=== PATIENT | female | born 1960 | race Caucasian/White ===

== ENCOUNTER → 2016-04-25 | Outpatient (CLI) | payer MEDICARE, OTHER ==
[~2016-04-25] MED LIST: ANTIVERT PO; BACTRIM DS TABL1 TAB PO; CALTRATE 600+D PO; CALTRATE PLUS T1 TAB PO; CALTRATE PO; CARVEDILOL3.125 MG PO; CIPRO PO; DETROL LA; DILANTIN; DILANTIN PO; DILANTIN30 MG PO; HCTZ; HYDROCHLOROTHIA25 MG PO; KCL PO; LEVAQUIN PO; LORTAB 5/500 TA1 TA1 PO; LORTAB 5/500 TA1 TA2 PO; MECLIZINE HCL25 M1 PO; METAMUCIL0.52 G; MICRO-K PO; PHENOBARB; PHENOBARB PO; PHENOBARBITAL PO; PHENOBARBITAL16.2 MG PO; POTASSIUM PO; PYRIDIUM PO; TOPAMAX; TOPAMAX PO; TOPAMAX200 MG PO; TUMS; VESICARE PO; VICODIN PO; ZOFRAN ODT4 MG PO; ZYPREXA PO; ZYPREXA10 MG PO; [UNRECOGNIZED DRUG - OTHER] PO; [UNRECOGNIZED DRUG - OTHER] PO
== END | disposition home or self-care (01) ==
LOC: CSSDAY 13:09
PROC: 0T2BX0Z Change Drainage Device in Bladder, External Approach (ICD-10-PCS; principal; 2016-04-25)
DX: Z46.6 Encounter for fitting and adjustment of urinary device (principal); R33.9 Retention of urine, unspecified
CPT/HCPCS: G0463

== ENCOUNTER → 2016-05-16 | Outpatient (CLI) | payer MEDICARE, OTHER | END | disposition home or self-care (01) | LOC: CSSDAY 10:27 | PROC: 0T2BX0Z Change Drainage Device in Bladder, External Approach (ICD-10-PCS; principal; 2016-05-16) | DX: Z46.6 Encounter for fitting and adjustment of urinary device (principal); R33.9 Retention of urine, unspecified | CPT/HCPCS: G0463 ==

== ENCOUNTER → 2016-06-06 | Outpatient (CLI) | payer MEDICARE, OTHER | END | disposition home or self-care (01) | LOC: CSSDAY 09:44 | PROC: 0T2BX0Z Change Drainage Device in Bladder, External Approach (ICD-10-PCS; principal; 2016-06-06) | DX: Z46.6 Encounter for fitting and adjustment of urinary device (principal) | CPT/HCPCS: G0463 ==

== ENCOUNTER → 2016-06-22 | Outpatient (CLI) | payer MEDICARE, OTHER ==
--- NOTE | ~2016-06-22 | MY11 ---
[facility] A Service of [facility] RADIOLOGY TEXT RESULTS PATIENT: LESLY SWEENEY LOCATION: [facility] : 60 UNIT #: [id number] AGE: [address]: Elli Winter MD SEX: F ORDER DR: [id number] [place] [id number] [facility]. [place], [place] [address] [id number] O MR#: [id number] Acc #: [id number] NAME: LESLY SWEENEY : 1960 SEX: F STUDY DATE/TIME: 06/22/2016 8:18 UNIT: [facility] ROOM: STUDY DESCRIPTION: MY Mammogram Screening Dig Mark Attending Physician: Elli Winter M.D. Ordering Physician: Elli Winter M.D. Primary Care Physician: Elli Winter M.D. MEDICAL IMAGING REPORT This report is preliminary unless electronic signature is present EXAM Bilateral digital screening mammogram with CAD INDICATION Breast cancer screening. 56-year-old asymptomatic female. No personal or family history of breast cancer. COMPARISON June 11, 2015, April 21, 2014, February 17, 2013, December 02, 2010, July 27, 2009, January 28, 2008, January 18, 2006, December 27, 2004. FINDINGS There are scattered fibroglandular tissues. No suspicious findings are present. IMPRESSION No mammographic evidence of malignancy. Annual screening mammography and clinical breast exam are recommended. A result letter will be sent to the patient. Patients over the age of 40 are entered into a reminder system with target due date for the next mammogram. BIRADS: 1 Negative Dictated by... Jayce Fernandez M.D. THIS IS AN ELECTRONICALLY VERIFIED REPORT Jayce Fernandez M.D. at 06/26/2016 5:48 PM [facility] A Service of [facility] RADIOLOGY TEXT RESULTS PATIENT: LESLY SWEENEY LOCATION: [facility] : 60 UNIT #: [id number] AGE: [address]: Elli Winter MD SEX: F ORDER DR: SABINE/ankita TD: 06/22/2016 10:52 JOB #: [id number] MEDICAL IMAGING REPORT Page 1 of 1 COPY
== END | disposition home or self-care (01) ==
LOC: CWCC 08:09
DX: Z12.31 Encounter for screening mammogram for malignant neoplasm of breast (principal)
CPT/HCPCS: G0202

== ENCOUNTER → 2016-06-26 | Outpatient (CLI) | payer MEDICARE, OTHER | END | disposition home or self-care (01) | LOC: CSSDAY 09:41 | PROC: 0T2BX0Z Change Drainage Device in Bladder, External Approach (ICD-10-PCS; principal; 2016-06-26) | DX: Z46.6 Encounter for fitting and adjustment of urinary device (principal); R33.9 Retention of urine, unspecified | CPT/HCPCS: G0463 ==

== ENCOUNTER → 2016-07-18 | Outpatient (CLI) | payer MEDICARE, OTHER | END | disposition home or self-care (01) | LOC: CSSDAY 09:40 | DX: Z46.6 Encounter for fitting and adjustment of urinary device (principal); R33.9 Retention of urine, unspecified | CPT/HCPCS: G0463 ==

== ENCOUNTER → 2016-08-08 | Outpatient (CLI) | payer MEDICARE, OTHER | END | disposition home or self-care (01) | LOC: CSSDAY 10:00 | PROC: 0T2BX0Z Change Drainage Device in Bladder, External Approach (ICD-10-PCS; principal; 2016-08-08) | DX: Z46.6 Encounter for fitting and adjustment of urinary device (principal); R33.9 Retention of urine, unspecified | CPT/HCPCS: G0463 ==

== ENCOUNTER → 2016-08-10 | Outpatient (CLI) | payer MEDICARE, OTHER ==
--- NOTE | ~2016-08-10 | CR7 ---
[facility] A Service of [facility] RADIOLOGY TEXT RESULTS PATIENT: LESLY SWEENEY LOCATION: [facility] : 60 UNIT #: [id number] AGE: [address]: Delonte Harvey MD SEX: F ORDER DR: [id number] [facility] [address] [facility]. [place], [place] [address] [id number] O MR#: [id number] Acc #: [id number] NAME: LESLY SWEENEY : 1960 SEX: F STUDY DATE/TIME: 08/10/2016 9:50 UNIT: [facility] ROOM: STUDY DESCRIPTION: CR Abdomen Single AP View Attending Physician: Delnote Harvey M.D. Referring Physician: Delonte Harvey M.D. Ordering Physician: Delonte Harvey M.D. Primary Care Physician: Elli Winter M.D. MEDICAL IMAGING REPORT This report is preliminary unless electronic signature is present EXAM AP abdomen DATE 08/10/2016 HISTORY Kidney stones. Followup. Bilateral abdominal pain for a couple of weeks, per patient. COMPARISON AP abdomen 10/04/2015 FINDINGS Study is somewhat attenuated secondary to patient's body habitus. There are least 2 stones projecting over the right lower renal pole measuring approximately 5 and 8 mm respectively. There are at least 2 stones at the left lower renal pole measuring 6 and 4 mm, respectively. These are not thought to be significantly changed. No definite ureteral calculi are identified. Nonspecific and nonobstructive bowel gas pattern. Small marginal osteophytes in the lumbar spine. IMPRESSION 1. There are least 2 stones seen in the vicinity of each lower renal pole, which are not thought to be significantly changed from 10/04/2015, the largest of these at the right lower renal pole measuring 8 mm. 2. No definite ureteral calculus. Dictated by... Trista Jewell M.D. [facility] A Service of [facility] RADIOLOGY TEXT RESULTS PATIENT: LESLY SWEENEY LOCATION: [facility] : 60 UNIT #: [id number] AGE: [address]: Delonte Harvey MD SEX: F ORDER DR: THIS IS AN ELECTRONICALLY VERIFIED REPORT Trista Jewell M.D. at 08/11/2016 8:32 AM [facility]/to TD: 08/10/2016 14:35 JOB #: [id number] MEDICAL IMAGING REPORT Page 1 of 1 COPY
== END | disposition home or self-care (01) ==
LOC: CRAD 09:35
DX: N20.0 Calculus of kidney (principal)
CPT/HCPCS: 74000

== ENCOUNTER → 2016-08-29 | Outpatient (CLI) | payer MEDICARE, OTHER | END | disposition home or self-care (01) | LOC: CSSDAY 11:00 | DX: R33.9 Retention of urine, unspecified (principal) | CPT/HCPCS: G0463 ==

== ENCOUNTER → 2016-09-13 | Outpatient (CLI) | payer MEDICARE, OTHER ==
[2016-09-13 13:50] LABS: BUN/CREATININE RATIO 12.22; CALCIUM SERUM 9.6 mg/dL (8.4-10.2); CREATININE SERUM 0.9 mg/dL (0.6-1.4); GLOM FILT RATE Estimated 71.5 mL/min (>60); POTASSIUM 3.5 mmol/L (3.5-5.1)
== END | disposition home or self-care (01) ==
LOC: CAMB 11:43
PROVIDERS: Surgery
DX: Z01.812 Encounter for preprocedural laboratory examination (principal)
CPT/HCPCS: 36415; 80048

== ENCOUNTER → 2016-09-15 | Day surgery (SDC) | payer MEDICARE, OTHER ==
--- NOTE | ~2016-09-15 | OR ---
Unit #: [id number] #: [id number] Patient: LESLY SWEENEY [id number] [address] [place], [place] [address] [id number] O MR#: [id number] NAME: LESLY SWEENEY ROOM: Date of Procedure: 09/15/2016 Admission Date: 09/15/2016 Surgeon: Petar Nguyen Jr., M.D. : 1960 Attending Physician: Petar Nguyen Jr., M.D. Referring Physician: Petar Nguyen Jr., M.D. Primary Care Physician: Elli Winter M.D. OPERATIVE REPORT INDICATIONS FOR PROCEDURE The patient is a 56-year-old obese white female, recently presented to the office the other day complaining of a chronic draining infected cyst of the right buttock area. This has been there for some time. She is brought in this time for excision of this under MAC anesthesia and local. The patient understands the procedure including the risks, including that of infection of the wound with the recurrence of her cyst and/or chronic pain and consents. PREOPERATIVE DIAGNOSIS Chronic infected cyst of the right buttock. POSTOPERATIVE DIAGNOSIS Chronic infected cyst of the right buttock noting approximately an 8 cm cyst. ANESTHESIA MAC anesthesia with local anesthesia in addition with 0.5% Marcaine with epinephrine. PROCEDURES PERFORMED Excision of large cyst of the right buttock. DESCRIPTION OF PROCEDURE The patient was positioned in left lateral decubitus position after being prepped and draped in routine fashion was given MAC anesthesia and then locally anesthetized with 0.5% Marcaine with epinephrine. An elliptical incision was made around the cyst with the incision length total of approximately 5 inches. This was carried down through subcutaneous tissue with a #10 blade scalpel, down to the deeper subcutaneous tissue with being completely removed from the surrounding tissue. After it was removed, it was sent to pathology. Hemostasis was achieved with Bovie cautery. The deeper tissue approximated with interrupted 2-0 Vicryl sutures. Subcutaneous approximated with interrupted 3-0 Vicryl sutures and the skin edges approximated with interrupted 2-0 nylon mattress stitches as well as stainless-steel skin clips. Sterile dressing was applied externally. Estimated blood loss less than 50 mL. The patient received less than 1000 mL crystalloid solution during the procedure. Sponges and instrument counts were correct x3. No drains used. No complications. The patient was taken to the recovery room with stable vital signs in satisfactory condition. Unit #: [id number] #: [id number] Patient: LESLY SWEENEY Dictated by... Petar Nguyen Jr., M.D. JMB/huy TD: 09/15/2016 11:00 JOB #: [id number] CC: Elli Winter M.D. OPERATIVE REPORT Page 1 of 1 X Petar Nguyen MD X PROCEDURE OPERATIVE NOTE
== END | disposition home or self-care (01) ==
LOC: CSUR 07:41
DX: L72.0 Epidermal cyst (principal); L02.31 Cutaneous abscess of buttock; I48.91 Unspecified atrial fibrillation; I10 Essential (primary) hypertension; E78.5 Hyperlipidemia, unspecified; G89.29 Other chronic pain; G40.909 Epilepsy, unspecified, not intractable, without status epilepticus; E66.01 Morbid (severe) obesity due to excess calories; F41.9 Anxiety disorder, unspecified; F32.9 Major depressive disorder, single episode, unspecified; Z68.42 Body mass index [BMI] 45.0-49.9, adult; Z88.0 Allergy status to penicillin; Z88.6 Allergy status to analgesic agent; Z88.1 Allergy status to other antibiotic agents; Z88.2 Allergy status to sulfonamides; Z79.899 Other long term (current) drug therapy; Z98.890 Other specified postprocedural states
CPT/HCPCS: 87070; 87075; 87205; 88304; J2250; J3010; J3370

== ENCOUNTER → 2016-09-19 | Outpatient (CLI) | payer MEDICARE, OTHER ==
--- NOTE | ~2016-09-19 | MR18 ---
[facility] A Service of [facility] & [facility] RADIOLOGY TEXT RESULTS PATIENT: LESLY SWEENEY LOCATION: [facility] : 60 UNIT #: [id number] AGE: [address]: Elli Winter MD SEX: F ORDER DR: [id number] [place] [id number] O MR#: [id number] Acc #: [id number] NAME: LESLY SWEENEY : 1960 SEX: F STUDY DATE/TIME: 09/19/2016 14:13 UNIT: [facility] ROOM: STUDY DESCRIPTION: MR Brain Wo Contrast Attending Physician: Elli Winter M.D. Referring Physician: Elli Winter M.D. Ordering Physician: Elli Winter M.D. Primary Care Physician: Elli Winter M.D. MRI CENTER REPORT This report is preliminary unless electronic signature is present. EXAM MRI brain without contrast HISTORY Dizziness. Seizure disorder, no known injury. No surgery. Patient has increasing dizziness and unsteadiness on feet, with episodes daily for a month. No history of cancer. MRI of the brain was performed without contrast using routine 1.5T imaging technique. There is a head CT comparison from 11/19/2011. There is no abnormally restricted diffusion. No evidence for a recent ischemic insult on the diffusion series. There is disproportionate volume loss in the posterior fossa including cerebellar hemispheres and vermis. The dorinda and middle cerebellar peduncles have e normal configuration. The main differential considerations are sequelae of longstanding alcohol use or seizure disorder medication use. Less likely considerations include familial ataxia syndromes or perineoplastic syndromes. Please correlate further clinically. There is no MRI evidence for intracranial hemorrhage. There is no extraaxial fluid collection. Otherwise, the ventricles are normal in size and configuration. Study is not performed as a seizure protocol. Last seizure in 2000 per patient. Small amount of fluid or inflammatory change in the mastoid tips. The major arterial intracranial flow voids are maintained. The paranasal sinuses are clear. Mild periventricular white matter signal abnormality is nonspecific but likely due to small vessel disease. IMPRESSION 1. Disproportionate volume loss in the posterior fossa particularly the cerebellar hemispheres and vermis. This pattern is most often associated with long-term alcohol or antiseizure medication usage. Please correlate further clinically and see differential above. [facility] A Service of [facility] & [facility] RADIOLOGY TEXT RESULTS PATIENT: LESLY SWEENEY LOCATION: [facility] : 60 UNIT #: [id number] AGE: [address]: Elli Winter MD SEX: F ORDER DR: 2. Otherwise no acute intracranial abnormality is appreciated. Mild probable sequelae of small vessel disease noted. Dictated by... Alva Lewis M.D. THIS IS AN ELECTRONICALLY VERIFIED REPORT Alva Lewis M.D. at 09/20/2016 11:03 AM JOSÉ ANTONIO/sujey TD: 09/20/2016 10:40 JOB #: [id number] MRI CENTER REPORT Page 1 of 1
--- NOTE | ~2016-09-19 | US37 ---
[facility] A Service of [facility] RADIOLOGY TEXT RESULTS PATIENT: LESLY SWEENEY LOCATION: [facility] : 60 UNIT #: [id number] AGE: [address]: Elli Winter MD SEX: F ORDER DR: [id number] [place] [id number] O MR#: [id number] Acc #: [id number] NAME: LESLY SWEENEY : 1960 SEX: F STUDY DATE/TIME: 09/19/2016 13:04 UNIT: [facility] ROOM: STUDY DESCRIPTION: US Carotid W/Doppler Bilateral Attending Physician: Elli Winter M.D. Referring Physician: Elli Winter M.D. Ordering Physician: Elli Winter M.D. Primary Care Physician: Elli Winter M.D. MEDICAL IMAGING REPORT This report is preliminary unless electronic signature is present. EXAM Bilateral carotid Doppler date of exam 09/19/2016 HISTORY Dizziness. FINDINGS The right common internal and external carotid arteries are patent without plaque noted throughout. Velocity in the common carotid artery is 78 cm/sec. Peak systolic velocity of the right proximal internal carotid artery is 61 cm/sec with an end diastolic velocity of 20 cm/sec for an ICA/CCA ratio of 0.78. External carotid artery velocity of 78 cm/sec. The vertebral artery is visualized with antegrade flow. The left common internal and external carotid arteries are patent without plaque or intimal thickening. Velocity of the common carotid artery is 70 cm/sec. Peak systolic velocity of the left proximal internal carotid artery is 52 cm/sec with an end diastolic velocity of 13 cm/sec for an ICA/CCA ratio of 0.74. External carotid artery velocity of 67 cm/sec. The vertebral artery is visualized with antegrade flow. IMPRESSION 1. Normal appearance without stenosis of the right and left internal carotid arteries. 2. No stenosis of the external carotid arteries. 3. Antegrade flow of the vertebral arteries. Dictated by... Richelle Ordoñez M.D. [facility] A Service of [facility] RADIOLOGY TEXT RESULTS PATIENT: LESLY SWEENEY LOCATION: [facility] : 60 UNIT #: [id number] AGE: [address]: Elli Winter MD SEX: F ORDER DR: THIS IS AN ELECTRONICALLY VERIFIED REPORT Richelle Ordoñez M.D. at 09/20/2016 8:50 AM ESEQUIEL/nida TD: 09/19/2016 18:23 JOB #: [id number] MEDICAL IMAGING REPORT Page 1 of 1
== END | disposition home or self-care (01) ==
LOC: SMRI 11:48
DX: R56.9 Unspecified convulsions (principal); R42 Dizziness and giddiness
CPT/HCPCS: 70551; 93880; G0463

== ENCOUNTER 2016-09-25 21:13 | Emergency (ER) | payer MEDICARE, OTHER ==
[~2016-09-25 21:13] MED LIST changes: -CARVEDILOL3.125 MG PO; -PHENOBARBITAL16.2 MG PO; -[UNRECOGNIZED DRUG - OTHER] PO
[2016-11-08] MEDS ORDERED: [UNRECOGNIZED DRUG - OTHER] PO (08:31)
[2016-11-08] MEDS ORDERED: CARVEDILOL3.125 MG PO (12:47)
[2016-11-08] MEDS ORDERED: VESICARE PO (13:12)
[2016-11-08] MEDS ORDERED: DILANTIN PO (13:12)
[2016-11-08] MEDS ORDERED: KCL PO (13:12)
[2016-11-08] MEDS ORDERED: ZYPREXA10 MG PO (13:14)
[2016-11-08] MEDS ORDERED: TOPAMAX200 MG PO (13:15)
[2016-11-08] MEDS ORDERED: PHENOBARBITAL16.2 MG PO (13:15)
[2016-11-08] MEDS ORDERED: HYDROCHLOROTHIA25 MG PO (13:16)
[2016-11-08] MEDS ORDERED: CALTRATE 600+D PO (13:17)
== END 2016-09-25 22:05 | disposition home or self-care (01) ==
LOC: CED 21:13 → CFTX 21:13
DX: T81.33XA Disruption of traumatic injury wound repair, initial encounter (principal)
CPT/HCPCS: 99282

== ENCOUNTER → 2016-10-10 | Outpatient (CLI) | payer MEDICARE, OTHER ==
[~2016-10-10] MED LIST changes: +CARVEDILOL3.125 MG PO; +PHENOBARBITAL16.2 MG PO; +[UNRECOGNIZED DRUG - OTHER] PO
== END | disposition home or self-care (01) ==
LOC: CSSDAY 07:15
DX: R33.9 Retention of urine, unspecified (principal)
CPT/HCPCS: G0463